=== PATIENT | male | born 1995 | race Caucasian/White ===

== ENCOUNTER 2017-10-02 09:39 | Outpatient (CLI) | payer OTHER | END 2017-10-02 09:45 | disposition home or self-care (01) | LOC: RAD 09:39 | DX: M25.461 Effusion, right knee (principal) ==

== ENCOUNTER → 2019-03-06 | Outpatient (CLI) | payer OTHER | END | disposition home or self-care (01) | LOC: RAD 14:35 | DX: M25.512 Pain in left shoulder (principal) ==

== ENCOUNTER 2019-03-11 12:05 | Outpatient (CLI) | payer OTHER | END 2019-03-11 12:06 | disposition home or self-care (01) | LOC: RAD 12:05 | DX: M79.671 Pain in right foot (principal) ==